=== PATIENT | female | born 1985 | race Caucasian/White ===

== ENCOUNTER 2016-12-16 14:24 | Day surgery (SDC) | payer OTHER ==
[2016-12-16] VITALS (21 sets, daily range): BP systolic 117–144; BP diastolic 66–89; PULSE 52–88; RESP 13–26; Ht 162.6 cm; Wt 5.0 kg
[~2016-12-16] VITALS: Ht 162.6 cm; Wt 5.0 kg
[~2016-12-16 14:24] MED LIST: CEFAZOLIN 2 GM/50 ML (PMX) 50 ML IVPB SCH; SOD CHLORIDE 0.9% 1,000 ML IV SCH
[2016-12-16 15:34] LABS: PARTIAL THROMBOPLASTIN TIME 32.3 Sec (25.0-35.0); PROTIME 13.2 Sec (12.2-14.2)
[2016-12-16] MEDS ORDERED: BUPIVACAINE 0.25% (MPF) 30 ML INJ ONE (21:08)
[2016-12-16] MEDS ORDERED: MIDAZOLAM 1 MG/ML 2 ML INJ ONE (21:23)
[2016-12-16] MEDS ORDERED: LIDOCAINE 2% (SDV) 5 ML INJ ONE (22:08)
[2016-12-16] MEDS ORDERED: CEFAZOLIN 1 GM INJ ONE (22:08)
[2016-12-16] MEDS ORDERED: ONDANSETRON 4 MG INJ ONE ×2 (22:08→22:11)
[2016-12-16] MEDS ORDERED: ROCURONIUM 50 MG INJ ONE (22:08)
[2016-12-16] MEDS ORDERED: PROPOFOL 20 ML ONE (22:08)
[2016-12-16] MEDS ORDERED: NEOSTIGMINE 3 MG/3 ML SYRINGE ONE (22:08)
[2016-12-16] MEDS ORDERED: GLYCOPYRROLATE 0.4 MG INJ ONE (22:08)
[2016-12-16] MEDS ORDERED: MEPERIDINE 25 MG INJ IV PRN (22:30)
[2016-12-16] MEDS ORDERED: HYDROCODONE/APAP (5/325) TAB PO ONE (22:30)
[2016-12-16] MEDS ORDERED: DIPHENHYDRAMINE 50 MG INJ IV PRN (22:30)
[2016-12-16] MEDS ORDERED: ONDANSETRON 4 MG INJ IV PRN (22:30)
[2016-12-16] MEDS ORDERED: HYDROmorphONE (0.2 MG/ML) 10ML SYG IV PRN (22:30)
[2016-12-16] MEDS ORDERED: FENTAnyl 50 MCG/ML VIAL IV PRN (22:30)
[2016-12-16] MEDS ORDERED: METOCLOPRAMIDE 10 MG INJ IV PRN (22:30)
[2016-12-16] MEDS: HYDROmorphONE (0.2 MG/ML) 10ML SYG IV PRN ×3 (22:31→23:32)
--- NOTE | 2016-12-16 22:52 | OPR ---
DATE OF OPERATION: 12/16/2016 INDICATION: This is a 31-year-old female with symptomatic gallstones. She requests surgical excisi on of her gallbladder. Risks, alternatives, benefits, and personnel were discussed with the patient . The patient expressed understanding and consents to the operation. PREOPERATIVE DIAGNOSIS: Symptomatic gallstones. POSTOPERATIVE DIAGNOSIS: Symptomatic gallstones. OPERATION: Laparoscopic cholecystectomy. SURGEON: José Miguel Chicas MD HISTORIC SITES REGISTRAR: Huber Schrader MD SPECIMEN: Gallbladder. COMPLICATIONS: None. ANESTHESIA: General. PROCEDURE IN DETAIL: Surgical timeout was performed. IV antibiotics were given. Infraumbilical in cision is made with a 15 blade. Dissection cautery was carried down to the fascia, which was divide d with curved Ahuja scissors. An 0 Vicryl U-stitch was placed into the fascia. Balloon Cristiana troca r was introduced. Pneumoperitoneum was established. Midepigastric 12 mm optical trocar and right u pper quadrant and right upper flank 5 mm optical trocars were placed under direct visualization. Up on initial inspection, there were some adhesions to the gallbladder, which were taken down bluntly. The cystic duct was identified. The critical view was established. The cystic duct and cystic art mounika divided using a 35 mm [place] vascular load stapler. Additional clips were placed to reinforce. The gallbladder was taken off the gallbladder bed. There was good hemostasis. Gallbladder was re trieved using EndoCatch bag. Ports were removed under direct visualization. The 0 Vicryl U-stitch was tied down. Skin was closed using skin judy. Local anesthesia was injected. Dry dressings w ere applied. Dictated By: JOSÉ MIGUEL CORONA/RIGOBERTO Conf#: [id number] DID#: [id number]
[2016-12-17 00:01] VITALS: BP 125/74; PULSE 76; RESP 14
[2016-12-17 00:06] VITALS: BP 136/78; PULSE 68; RESP 16
[2016-12-17 00:11] VITALS: BP 131/76; PULSE 118; RESP 15
[2016-12-17 00:16] VITALS: BP 124/82; PULSE 82; RESP 15
== END 2016-12-17 00:45 | disposition home or self-care (01) ==
LOC: SDS 14:24
PROVIDERS: ATTEND Surgery
DX: K81.1 Chronic cholecystitis (principal)
CPT/HCPCS: 47562; 84703; 85610; 85730; 88304; J0690; J1170; J2175; J2250; J2405; J2710; J2765; J3010; Z7512; Z7610